=== PATIENT | male | born 1980 | race Caucasian/White ===

== ENCOUNTER 2025-01-11 15:31 | Emergency (ER) | payer MEDICAID ==
[~2025-01-11] VITALS: Ht 167.6 cm; Wt 100.7 kg
[2025-01-11 15:39] VITALS: TEMP 98.6
[2025-01-11 15:45] VITALS: BP 142/77; O2SAT 97
[2025-01-11] MEDS ORDERED: IBUPROFEN 400 MG TABLET ONE (16:08)
[2025-01-11] MEDS ORDERED: ACETAMINOPHEN ES 500 MG TABLET ONE (16:08)
[2025-01-11] MEDS: IBUPROFEN 400 MG TABLET PO ONE (16:19)
[2025-01-11] MEDS: ACETAMINOPHEN ES 500 MG TABLET PO ONE (16:19)
[2025-01-11] MEDS ORDERED: IBUP-1490 PO (16:51)
== END 2025-01-11 17:10 | disposition left against medical advice (07) ==
LOC: ER 15:35
DX: R07.81 Pleurodynia (principal); I10 Essential (primary) hypertension; W01.0XXA Fall on same level from slipping, tripping and stumbling without subsequent striking against object, initial encounter; Y93.89 Activity, other specified; Y92.89 Other specified places as the place of occurrence of the external cause; Y99.8 Other external cause status
CPT/HCPCS: 71100-TC